=== PATIENT | female | born 1940 | race Caucasian/White ===

== ENCOUNTER → 2016-09-22 | Day surgery (SDC) | payer MEDICARE ==
[~2016-09-22] MED LIST: ASPI81 PO; CALTTAB5 PO; DIAZ2 PO; FISH1000 PO; GABA100C4 PO; METHTAB PO; ONABOTULINUMTOXINA INJ 100 UNITS/VIAL ONE; PRIL20CA PO; PROPOFOL 200 MG/20 ML AMP IV ONE; RANI150T PO; RESP: ALBUTEROL 2.5 MG/3 ML NEB (SCH) ONE; SENN1TAB11 PO; SLOWTAB PO; SODIUM CHLORIDE 0.9% INJ 10 ML ONE; SYNT88TA PO; TAB-TAB; leutin PO
== END | disposition home or self-care (01) ==
LOC: ESDC 11:25
PROVIDERS: ATTEND Internal Medicine Gastroenterology
DX: R13.10 Dysphagia, unspecified (principal); K29.70 Gastritis, unspecified, without bleeding; K22.4 Dyskinesia of esophagus
CPT/HCPCS: 00740; 43236; 43239; 43248; 88305; 88312; J0585; J3010; J7613

== ENCOUNTER 2017-02-07 18:52 | Emergency (ER) | payer MEDICARE ==
[~2017-02-07 18:52] MED LIST changes: -ONABOTULINUMTOXINA INJ 100 UNITS/VIAL ONE; -PROPOFOL 200 MG/20 ML AMP IV ONE; -RESP: ALBUTEROL 2.5 MG/3 ML NEB (SCH) ONE; -SODIUM CHLORIDE 0.9% INJ 10 ML ONE
[2017-02-07 18:55] VITALS: BP 188/80; PULSE 86; RESP 24; TEMP 98.3; O2SAT 99
--- NOTE | 2017-02-07 20:47 | PD ---
HPI Chief Complaint: Hypertension Time Seen by Provider: 20:23 Travel History International Travel<30 days: No Contact w/Intl Traveler<30days: No Traveled to known affect area: No History of Present Illness HPI The patient is a 76-year-old female who presents emergency department for elevated blood pressure. The patient states she was outside in the garage, where it was warm, working earlier today for an upcoming vacation when she became somewhat shaky. The patient states she was back in the house, was somewhat shaky, felt like her hands were tingling and her legs were shaking, she checked her blood pressure was elevated. The patient states her systolic blood pressure was in the 170s. The patient has a recent history of borderline hypertension and has been seen by her primary physician, Dr. Felix. However, she is not been placed on medications, they stated they would watch it for several weeks. She denied any headache, chest pain, or shortness of breath. She does note her symptoms have improved, however, she is still somewhat anxious about her elevated blood pressure earlier today. She denies any focal deficits. She called EMS who subsequently transferred her to the emergency department. Symptoms are mild to moderate, self alleviating, possibly exacerbated by history of anxiety and underlying hypertension. PFSH Past Medical History Cancer: No Cardiovascular Problems: No Diabetes: No Endocrine: No Gastrointestinal Disorders: Yes (GERD) Genitourinary: No Hepatitis: No Hiatal Hernia: Yes Immune Disorder: No Musculoskeletal: Yes (spinal stenosis) Neurologic: No Psychiatric: No Reproductive: No Respiratory: No Immunizations Current: Yes Thyroid Disease: Yes Past Surgical History Abdominal Surgery: Yes (HERNIA X2) AICD: No Appendectomy: Yes Body Medical Devices: MESH LEFT GROIN Cardiac Surgery: No Ear Surgery: No Endocrine Surgery: No Eye Surgery: No Genitourinary Surgery: No Gynecologic Surgery: Yes (HYSTERECTOMY) Hysterectomy: Yes Joint Replacement: No Oral Surgery: No Pacemaker: No Thoracic Surgery: No Tonsillectomy: Yes Other Surgery: Yes (HYSTERECTOMY, TONSILECTOMY, HERNIA REPAIR, HAND SURGERY) Social History Alcohol Use: Yes (WINE DAILY) Tobacco Use: No Substance Use: No Allergies-Medications (Allergen,Severity, Reaction): Coded Allergies: Epinephrine (Verified Allergy, Severe, ANXIETY, TACHYCARDIA, 02/07/17) Sulfa (Verified Allergy, Mild, SWELLING, 7/15/17) Reported Meds & Prescriptions Reported Meds & Active Scripts Active Reported [Vitamin B6] 1 Tab PO HS Vitamin B12 (Cyanocobalamin) 100 Mcg Tab Unknown Dose PO DAILY [leutin] 1 Drop EACH EYE DAILY Ranitidine (Ranitidine HCl) 150 Mg Tab 150 Mg PO DAILY Multiple Vitamins For Women (Multivit with Calcium,Iron,Min) 1 Each Tablet 1 Tab PO DAILY Slow-Mag (Magnesium Chloride-Calcium Carbonate) 71.5-119 Mg Tab 250 Mg PO DAILY Omeprazole 20 Mg Tab 20 Mg PO DAILY Levothyroxine (Levothyroxine Sodium) 88 Mcg Tab 88 Mcg PO DAILY Gabapentin 100 Mg Cap 200 Mg PO HS Estradiol 2 Mg Tab 2 Mg PO DAILY Senna-Plus (Sennosides-Docusate Sodium) 8.6-50 Mg Tab 1 Tab PO DAILY Metamucil Original Texture (Psyllium Hydrophilic Mucilloid) 48.57 % Pow 1 Scoop PO TID PRN 1 rounded TEASPOON in 8 oz of liquid at the first sign of irregularity. Alprazolam 2 Mg Tab 2 Mg PO Q6H PRN Caltrate 600+D Chew (Calcium Carbonate-Vitamin D Chew) 600-400 Mg-Unit Chew 1 Tab PO BID Aspirin 81 Mg Chew 81 Mg CHEW DAILY Review of Systems Except as stated in HPI: all other systems reviewed are Neg HENT: No: Headaches, Lightheadedness Cardiovascular: No: Chest Pain or Discomfort Respiratory: No: Shortness of Breath Gastrointestinal: No: Nausea, Vomiting, Abdominal Pain Musculoskeletal: Positive: Weakness Neurologic: Positive: Weakness Psychiatric: Positive: Anxiety Physical Exam Narrative GENERAL: Awake, alert, pleasant 76-year-old female who appears her stated age and is in no acute respiratory distress. SKIN: Focused skin assessment warm/dry. HEAD: Atraumatic. Normocephalic. EYES: Pupils equal and round. Pupils are 3 mm bilateral and reactive. EOMs are intact. ENT: No nasal bleeding or discharge. Mucous membranes pink and moist. NECK: Trachea midline. No JVD. CARDIOVASCULAR: Regular rate and rhythm. No murmur appreciated. RESPIRATORY: No accessory muscle use. Clear to auscultation. Breath sounds equal bilaterally. GASTROINTESTINAL: Abdomen soft, non-tender, nondistended. No rebound tenderness. MUSCULOSKELETAL: No obvious deformities. No clubbing. No cyanosis. No edema. NEUROLOGICAL: Awake and alert. No obvious cranial nerve deficits. Motor grossly within normal limits. Normal speech. Nonfocal. Oriented 4. No drift of the upper or lower extremities. Sensation is symmetric bilaterally. PSYCHIATRIC: Slightly anxious. Data Data Last Documented VS Vital Signs Date Time Temp Pulse Resp B/P Pulse Ox O2 Delivery O2 Flow Rate FiO2 02/07/17 18:55 98.3 86 24 188/80 99 Room Air Orders Complete Blood Count With Diff (02/07/17 20:41) Comprehensive Metabolic Panel (02/07/17 20:41) Creatine Kinase (Cpk) (02/07/17 20:41) Troponin I (02/07/17 20:41) Electrocardiogram (02/07/17 ) Lisinopril (Prinivil) (02/07/17 22:30) Labs Laboratory Tests Test 02/07/17 20:50 White Blood Count 7.9 TH/MM3 Red Blood Count 4.89 MIL/MM3 Hemoglobin 14.4 GM/DL Hematocrit 43.5 % Mean Corpuscular Volume 88.9 FL Mean Corpuscular Hemoglobin 29.4 PG Mean Corpuscular Hemoglobin 33.1 % Concent Red Cell Distribution Width 13.9 % Platelet Count 220 TH/MM3 Mean Platelet Volume 9.2 FL Neutrophils (%) (Auto) 76.8 % Lymphocytes (%) (Auto) 13.6 % Monocytes (%) (Auto) 8.6 % Eosinophils (%) (Auto) 0.6 % Basophils (%) (Auto) 0.4 % Neutrophils # (Auto) 6.1 TH/MM3 Lymphocytes # (Auto) 1.1 TH/MM3 Monocytes # (Auto) 0.7 TH/MM3 Eosinophils # (Auto) 0.0 TH/MM3 Basophils # (Auto) 0.0 TH/MM3 CBC Comment DIFF FINAL Differential Comment Sodium Level 138 MEQ/L Potassium Level 3.3 MEQ/L Chloride Level 104 MEQ/L Carbon Dioxide Level 25.7 MEQ/L Anion Gap 8 MEQ/L Blood Urea Nitrogen 14 MG/DL Creatinine 0.64 MG/DL Estimat Glomerular Filtration 91 ML/MIN Rate Random Glucose 101 MG/DL Calcium Level 9.2 MG/DL Total Bilirubin 0.8 MG/DL Aspartate Amino Transf 27 U/L (AST/SGOT) Alanine Aminotransferase 23 U/L (ALT/SGPT) Alkaline Phosphatase 54 U/L Total Creatine Kinase 179 U/L Troponin I LESS THAN 0.02 NG/ML Total Protein 7.1 GM/DL Albumin 3.9 GM/DL MDM Medical Decision Making Medical Screen Exam Complete: Yes Emergency Medical Condition: Yes Medical Record Reviewed: Yes Interpretation(s) EKG reveals normal sinus rhythm with a rate of 64. Inverted T waves noted in lead 3. Laboratory Tests Test 02/07/17 20:50 White Blood Count 7.9 TH/MM3 Red Blood Count 4.89 MIL/MM3 Hemoglobin 14.4 GM/DL Hematocrit 43.5 % Mean Corpuscular Volume 88.9 FL Mean Corpuscular Hemoglobin 29.4 PG Mean Corpuscular Hemoglobin 33.1 % Concent Red Cell Distribution Width 13.9 % Platelet Count 220 TH/MM3 Mean Platelet Volume 9.2 FL Neutrophils (%) (Auto) 76.8 % Lymphocytes (%) (Auto) 13.6 % Monocytes (%) (Auto) 8.6 % Eosinophils (%) (Auto) 0.6 % Basophils (%) (Auto) 0.4 % Neutrophils # (Auto) 6.1 TH/MM3 Lymphocytes # (Auto) 1.1 TH/MM3 Monocytes # (Auto) 0.7 TH/MM3 Eosinophils # (Auto) 0.0 TH/MM3 Basophils # (Auto) 0.0 TH/MM3 CBC Comment DIFF FINAL Differential Comment Sodium Level 138 MEQ/L Potassium Level 3.3 MEQ/L Chloride Level 104 MEQ/L Carbon Dioxide Level 25.7 MEQ/L Anion Gap 8 MEQ/L Blood Urea Nitrogen 14 MG/DL Creatinine 0.64 MG/DL Estimat Glomerular Filtration 91 ML/MIN Rate Random Glucose 101 MG/DL Calcium Level 9.2 MG/DL Total Bilirubin 0.8 MG/DL Aspartate Amino Transf 27 U/L (AST/SGOT) Alanine Aminotransferase 23 U/L (ALT/SGPT) Alkaline Phosphatase 54 U/L Total Creatine Kinase 179 U/L Troponin I LESS THAN 0.02 NG/ML Total Protein 7.1 GM/DL Albumin 3.9 GM/DL Differential Diagnosis Differential diagnosis includes hypertension, hypertensive urgency, hypertensive emergency, heat exhaustion, dehydration, electrolyte abnormality, anxiety. Narrative Course IV was established, labs are drawn and sent, and the patient was placed on cardiac telemetry monitoring and continuous pulse oximetry monitoring. EKG was ordered and interpreted. The patient's EKG was unremarkable. Patient's lab work is unremarkable except for potassium that was mildly low at 3.3. The patient's systolic blood pressure ranged anywhere from 156-188, she was nice symptomatic. The patient appears to have mild hypertension, will be placed on Cipro 5 mg daily, was provided her first dose in the emergency department. She is advised to follow-up with her primary physician, Dr. Felix. She will be provided a copy of her labs at discharge. Diagnosis Primary Impression: Hypertension Qualified Code: I10 - Essential hypertension Patient Instructions: General Instructions Additional Instructions: Medications as directed. If blood pressure drops to lower he become lightheaded /dizzy, stop lisinopril. Monitor for angioedema. Follow-up with your primary physician. Please provide the patient a copy of her labs at discharge. Med/Other Pt SpecificInfo: Prescription(s) given Scripts Lisinopril 5 Mg Tab5 Mg PO DAILY #30 TAB Ref 0 Prov:Fernando Vivar MD 02/07/17 Disposition: 01 DISCHARGE HOME Condition: Stable Fernando Vivar MD Feb 07, 2017 20:47
[2017-02-07] MEDS ORDERED: ESTR2TAB PO (21:47)
[2017-02-07] MEDS ORDERED: META48.53 PO (21:47)
[2017-02-07] MEDS ORDERED: LEVO88TA2 PO (21:47)
[2017-02-07] MEDS ORDERED: ALPR2TAB3 PO (21:47)
[2017-02-07] MEDS ORDERED: VITAMIN B6 PO (21:47)
[2017-02-07] MEDS ORDERED: CALTCHW5 PO (21:47)
[2017-02-07] MEDS ORDERED: leutin EACH EYE (21:47)
[2017-02-07] MEDS ORDERED: VITA100T15 PO (21:47)
[2017-02-07] MEDS ORDERED: ASPI81CH CHEW (21:47)
[2017-02-07] MEDS ORDERED: SLOWTAB PO (21:47)
[2017-02-07] MEDS ORDERED: OMEP20TA PO (21:47)
[2017-02-07] MEDS ORDERED: MULT-177 PO (21:47)
[2017-02-07] MEDS ORDERED: SENN1TAB PO (21:47)
[2017-02-07] MEDS ORDERED: RANI150T PO (21:47)
[2017-02-07] MEDS ORDERED: GABA100C4 PO (21:47)
[2017-02-07 21:48] LABS: AUTOMATED NEUTROPHIL # 6.1 TH/MM3 (1.8-7.7); BASOPHIL % 0.4 % (0.0-2.0); EOSINOPHIL % 0.6 % (0.0-4.0); HEMATOCRIT 43.5 % (35.0-46.0); HEMO FLAGS DIFF FINAL; LYMPH % 13.6 % (9.0-44.0); LYMPHOCYTE # 1.1 TH/MM3 (1.0-4.8); MEAN CELL VOLUME 88.9 FL (80.0-100.0); MEAN CORPUSCULAR HEMOGLOBIN 29.4 PG (27.0-34.0); MEAN CORPUSCULAR HGB CONC 33.1 % (32.0-36.0); MONO % 8.6 % (0.0-8.0); NEUT % 76.8 % (16.0-70.0); PLATELET COUNT 220 TH/MM3 (150-450); RED BLOOD COUNT 4.89 MIL/MM3 (4.00-5.30); RED CELL DISTRIBUTION WIDTH 13.9 % (11.6-17.2); WHITE BLOOD COUNT 7.9 TH/MM3 (4.0-11.0)
[2017-02-07 22:02] LABS: ALT (GPT) 23 U/L (10-53); ANION GAP 8 MEQ/L (5-15); AST (GOT) 27 U/L (15-37); BICARBONATE 25.7 MEQ/L (21.0-32.0); BLOOD UREA NITROGEN 14 MG/DL (7-18); CHLORIDE 104 MEQ/L (98-107); GLOMERULAR FILTRATION RATE 91 ML/MIN (>89); POTASSIUM 3.3 MEQ/L (3.5-5.1); SODIUM (NA) 138 MEQ/L (136-145)
[2017-02-07 22:06] LABS: ALKALINE PHOSPHATASE 54 U/L (45-117); CREATINE KINASE 179 U/L (26-192); TOTAL BILIRUBIN ADULT 0.8 MG/DL (0.2-1.0)
[2017-02-07] MEDS ORDERED: LISI-519 PO (22:27)
[2017-02-07] MEDS ORDERED: LISINOPRIL 5 MG TAB PO ONE (22:30)
[2017-02-07 23:27] VITALS: BP 141/65
--- NOTE | 2017-02-08 12:42 | EKG ---
Date Performed: 02/07/2017 Time Performed: 21:01:11 PTAGE: 76 years EKG: Sinus rhythm LEFT ATRIAL ENLARGEMENT POSSIBLE LEFT VENTRICULAR HYPERTROPHY Compared to prior tracing no significa nt change ABNORMAL ECG PREVIOUS TRACING : 07/11/2010 12.06 DOCTOR: Santhosh Whitley Interpretating Date/Time 02/08/2017 12:35:15
== END 2017-02-07 23:29 | disposition home or self-care (01) ==
LOC: NEPD 18:52
DX: I10 Essential (primary) hypertension (principal); R94.31 Abnormal electrocardiogram [ECG] [EKG]; E07.9 Disorder of thyroid, unspecified; Z87.19 Personal history of other diseases of the digestive system; Z87.39 Personal history of other diseases of the musculoskeletal system and connective tissue
CPT/HCPCS: 80053; 82550; 84484; 85025; 93005; 99284

== ENCOUNTER → 2017-05-25 | Outpatient (CLI) | payer MEDICARE ==
[~2017-05-25] MED LIST changes: +ALPR2TAB3 PO; -ASPI81 PO; +ASPI81CH CHEW; +CALTCHW5 PO; -CALTTAB5 PO; -DIAZ2 PO; +ESTR2TAB PO; -FISH1000 PO; +LEVO88TA2 PO; +LISI-519 PO; +META48.53 PO; -METHTAB PO; +MULT-177 PO; +OMEP20TA PO; -PRIL20CA PO; +SENN1TAB PO; -SENN1TAB11 PO; -SYNT88TA PO; -TAB-TAB; +VITA100T15 PO; +VITAMIN B6 PO; +leutin EACH EYE; -leutin PO
--- NOTE | 2017-05-25 10:41 | RADRPT ---
EXAM DATE/TIME: 05/25/2017 10:07 [facility] COMPARISON: No previous studies available for comparison. INDICATIONS : Dysphagia. FLUORO TIME: 1.6 minutes IMAGE COUNT: 1 CONTRAST: Dose as prescribed by speech pathologist. MEDICAL HISTORY : None. SURGICAL HISTORY : dilitation and botox ENCOUNTER: Initial ACUITY: >1 year PAIN SCORE: 0/10 LOCATION: Bilateral neck FINDINGS: A modified barium swallow was performed with speech pathology. Patient was given a variety of liquids to swallow. Moderate degenerative changes cervical spine with anterior osteophytes at C5-C6 and C6-C7. There is no aspiration. For a full detailed report, see report by the speech pathologist. CONCLUSION: Negative for aspiration. Segundo Markham MD FACR on May 25, 2017 at 10:38 Board Certified Radiologist. This report was verified electronically.
== END ==
LOC: HRAD 09:40
PROVIDERS: ATTEND Internal Medicine Gastroenterology
DX: J38.5 Laryngeal spasm (principal)
CPT/HCPCS: 74230; 92611; G8996; G8997; G8998